=== PATIENT | female | born 1985 | race Caucasian/White ===

== ENCOUNTER → 2016-07-19 | Outpatient (CLI) | payer OTHER ==
[~2016-07-19] MED LIST: ALBUAER2 INH; BCPILLS PO; CLC150 PO; CRANPOW; FLVHFA110 INH; MRLP17 PO; MULT-506 PO; NITR1CAP33 PO; STLS
--- NOTE | 2016-07-19 09:17 | DIAGNOSTIC IMAGING REPORT ---
ULTRASOUND KIDNEYS AND BLADDER CLINICAL HISTORY: Neurogenic bladder. COMPARISON STUDY: Renal ultrasound dated 01/01/2016. TECHNIQUE: Real-time, grayscale, and color flow sonography of the kidneys and bladder is performed. Images are reviewed in the transverse and longitudinal planes. FINDINGS: Kidneys: The kidneys are normal in size and echotexture. The right kidney measures 9.4 x 3.9 x 4.7 cm and the left kidney measures 9.1 x 5.2 x 4.2 cm. Fullness of the renal collecting system bilaterally and an extrarenal pelvis on the right are similar to previous. There is no hydronephrosis. A 7 mm calculus is seen in the right lower pole. There is no sonographic evidence of contour deforming renal mass lesion. No perinephric fluid is identified. Bladder: The bladder is distended, and the bladder wall appears thickened and trabeculated. Ureteral jets were not seen. IMPRESSION: 1. The bladder is distended, and the wall appears thickened and trabeculated. This is consistent with the reported history of a neurogenic bladder and is similar appearance to previous. 2. The kidneys are normal in size and without hydronephrosis. 3. Nonobstructing right renal calculus. Electronically signed by: Melchor Dai M.D. 07/19/2016 9:15 AM Dictated Date/Time: 07/19/2016 9:12 AM
== END | disposition home or self-care (01) ==
LOC: C.ULTR 08:40
PROVIDERS: ATTEND Nurse Practitioner
DX: N31.9 Neuromuscular dysfunction of bladder, unspecified (principal); K59.2 Neurogenic bowel, not elsewhere classified; N20.0 Calculus of kidney

== ENCOUNTER → 2016-08-20 | Outpatient (CLI) | payer OTHER ==
[2016-08-20 13:59] LABS: ESTIMATED AVERAGE GLUCOSE 97 mg/dl; HA1C FLAG Normal (Normal)
[2016-08-20 15:00] LABS: CHOLESTEROL/HDL RATIO 3.7; THYROID STIMULATING HORMONE 1.42 uIu/ml (0.300-4.500)
[2016-08-22 13:43] LABS: MICROSOMAL AB <1 IU/ML (<9)
== END | disposition home or self-care (01) ==
LOC: C.LAB 12:06
PROVIDERS: ATTEND Family Medicine
DX: E03.9 Hypothyroidism, unspecified (principal); Z13.1 Encounter for screening for diabetes mellitus; Z13.220 Encounter for screening for lipoid disorders

== ENCOUNTER → 2016-10-01 | Outpatient (CLI) | payer OTHER | END | disposition home or self-care (01) | LOC: C.LAB 12:21 | PROVIDERS: ATTEND Physician Assistant | DX: E03.9 Hypothyroidism, unspecified (principal) ==

== ENCOUNTER → 2016-11-01 | Outpatient (CLI) | payer OTHER ==
--- NOTE | 2016-11-01 11:36 | DIAGNOSTIC IMAGING REPORT ---
ABDOMEN AND PELVIS CT WITHOUT CONTRAST CT DOSE: 231.08 mGy.cm HISTORY: Right flank pain. NEUROGENIC BLADDER CA TECHNIQUE: Multiaxial CT images of the abdomen and pelvis were performed without contrast. COMPARISON STUDY: Renal ultrasound 07/19/2016. Abdominal series 03/12/2006. FINDINGS: Linear densities at the lung bases consistent with subsegmental atelectasis. No pneumoperitoneum. No pneumatosis. 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 Deformity of the distal sacrum/coccyx is likely congenital. There is also congenital deformity within the iliac bones. Multiple segmental anomalies and fusion of the lumbar spine. There is an area of discontinuity within the mid lumbar spine which may represent an old fracture or pseudoarthrosis within the with surrounding soft tissue thickening. This is likely chronic. 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 There are 2 peritoneal catheter/shunts which terminate in the Morgagni hernia. These are looped together, unchanged. The unenhanced liver, gallbladder, spleen, adrenal glands, and pancreas are unremarkable. No retroperitoneal lymphadenopathy. Normal left kidney. A 4 mm stone within the right kidney. No ureteral stones. No hydronephrosis. Bladder is mildly distended and mildly thickened. The uterus and bilateral adnexa are unremarkable. Suboptimal evaluation for bowel pathology due to the lack of intravenous and oral contrast. However, there is no definite bowel wall thickening or obstruction. Questionable thickening of the colon is likely due to underdistention. Tiny fat-containing umbilical hernia. Anastomotic suture material within the right side the abdomen. IMPRESSION: 1. Right-sided nephrolithiasis. No hydronephrosis or ureteral stones. 2. No definite bowel wall thickening or obstruction. 3. Mildly distended and mildly thickened bladder. 4. Large anterior Morgagni hernia. 5. There are 2 adjacent peroneal shunt catheters terminating in the Morgagni hernia. The shunt catheters are looped together. This remains unchanged. 6. 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 This includes a area of discontinuity within the mid lumbar spine which may be due to an old nonunited fracture or pseudoarthrosis. There is mild soft tissue thickening around this nonunited section which is likely chronic. Electronically signed by: Kameron Rodriguez M.D. 11/01/2016 11:35 AM Dictated Date/Time: 11/01/2016 11:20 AM
== END | disposition home or self-care (01) ==
LOC: C.CTS 10:53
PROVIDERS: ATTEND Nurse Practitioner
DX: N31.9 Neuromuscular dysfunction of bladder, unspecified (principal); N20.0 Calculus of kidney; K46.9 Unspecified abdominal hernia without obstruction or gangrene

== ENCOUNTER → 2017-09-30 | Outpatient (CLI) | payer OTHER ==
--- NOTE | 2017-09-30 11:50 | DIAGNOSTIC IMAGING REPORT ---
RENAL ULTRASOUND CLINICAL HISTORY: Frequent urinary tract infections. COMPARISON STUDY: Renal ultrasound July 19, [address] of the abdomen and pelvis November 01, 2016. TECHNIQUE: Sonography of the kidneys and the urinary bladder was performed. FINDINGS: The right kidney measures 9.8 cm in maximal dimension and the left measures 10 cm. Mild right hydronephrosis resolved following catheterization. Mild left hydronephrosis persisted following catheterization. A 4 mm [place] within the lower pole the right kidney is noted. Renal echogenicity, size and cortical thickness are normal. Minimal postvoid residual was noted within the bladder following catheterization. IMPRESSION: 1. Normal renal echogenicity, size and cortical thickness. 2. Mild left hydronephrosis which persisted following catheterization. 3. Mild right hydronephrosis which resolved following catheterization. 4. 4 mm right renal calculus. Electronically signed by: Julio Sainz M.D. 09/30/2017 11:49 AM Dictated Date/Time: 09/30/2017 11:45 AM
== END | disposition home or self-care (01) ==
LOC: C.ULTR 10:25
PROVIDERS: ATTEND Nurse Practitioner
DX: N31.9 Neuromuscular dysfunction of bladder, unspecified (principal); K59.2 Neurogenic bowel, not elsewhere classified

== ENCOUNTER → 2017-09-30 | Outpatient (CLI) | payer OTHER ==
[2017-09-30 10:14] LABS: BASO % 0.1 %; BASO ABS # 0.01 K/uL (0-0.2); EOS % 1.1 %; EOS ABS # 0.11 K/uL (0-0.5); HEMOGLOBIN 16.3 g/dL (12.0-16.0); IG# 0.03 K/uL (0.00-0.02); LYMPH % 29.1 %; MEAN CELL VOLUME 90.2 fL (80-100); MEAN CORPUSCULAR HGB CONC 33.3 g/dl (32-36); MEAN PLATELET VOLUME 10.9 fL (7.4-10.4); MONO % 3.1 %; MONO ABS # 0.31 K/uL (0.11-0.59); NEUT % 66.3 %; NEUT ABS # 6.59 K/uL (1.4-6.5); PLATELET COUNT 284 K/uL (130-400); RED CELL DISTRIBUTION WIDTH CV 13.3 % (11.5-14.5); RED CELL DISTRIBUTION WIDTH SD 43.3 fL (36.4-46.3); WHITE BLOOD COUNT 9.95 K/uL (4.8-10.8)
[2017-09-30 10:42] LABS: ALBUMIN 4.2 gm/dl (3.4-5.0); ALT/SGPT 43 U/L (12-78); AST/SGOT 20 U/L (15-37); BLOOD UREA NITROGEN 8 mg/dl (7-18); CALCIUM 8.8 mg/dl (8.5-10.1); CARBON DIOXIDE 27 mmol/L (21-32); CHOLESTEROL 131 mg/dl (0-200); CREATININE 0.33 mg/dl (0.60-1.20); GLUCOSE 71 mg/dl (70-99); POTASSIUM 3.8 mmol/L (3.5-5.1); SODIUM 140 mmol/L (136-145)
[2017-09-30 11:03] LABS: ALKALINE PHOSPHATASE 58 U/L (45-117); LDL CHOLESTEROL CALCULATED 69 mg/dl; TOTAL PROTEIN 7.9 gm/dl (6.4-8.2)
== END | disposition home or self-care (01) ==
LOC: C.LAB 09:13
PROVIDERS: ATTEND Physician Assistant
DX: I10 Essential (primary) hypertension (principal); E78.00 Pure hypercholesterolemia, unspecified

== ENCOUNTER 2020-10-02 13:20 | Inpatient (IN) ==
--- NOTE | 2020-10-02 14:31 | Electrocardiogram Report ---
Test Reason : Blood Pressure : / mmHG Vent. Rate : 111 BPM Atrial Rate : 111 BPM P-R Int : 096 ms QRS Dur : 064 ms QT Int : 324 ms P-R-T Axes : 037 039 039 degrees QTc Int : 440 ms Sinus tachycardia with short [place] Low voltage QRS Borderline ECG No previous ECGs available Confirmed by Kobe Miller ([id number]) on 10/02/2020 2:31:06 PM Referred By: Confirmed By:Kobe Miller
[2020-10-02 14:34] LABS: Basophils # (auto) 0.03 K/uL (0-0.2); Basophils % (auto) 0.3 %; Eosinophils # (auto) 0.24 K/uL (0-0.5); Eosinophils % (auto) 2.1 %; Hematocrit (blood only) 47.9 % (37-47); Hemoglobin 16.1 g/dL (12.0-16.0); Immature Granulocytes # (auto) 0.05 K/uL (0.00-0.02); Immature Granulocytes % (auto) 0.4 %; Lymphocytes # (auto) 3.55 K/uL (1.2-3.4); Mean Corpuscular Hemoglobin 30.4 pg (25-34); Mean Corpuscular Hgb Conc 33.6 g/dL (32-36); Mean Corpuscular Volume 90.4 fL (80-100); Mean Platelet Volume 10.7 fL (7.4-10.4); Monocytes # (auto) 0.72 K/uL (0.11-0.59); Monocytes % (auto) 6.3 %; Neutrophils # (auto) 6.87 K/uL (1.4-6.5); Neutrophils % (auto) 59.9 %; Platelet Count 403 K/uL (130-400); RDW Coefficient of Variation 13.8 % (11.5-14.5); RDW Standard Deviation 45.5 fL (36.4-46.3); White Blood Count 11.46 K/uL (4.8-10.8)
--- NOTE | 2020-10-02 14:40 | Emergency Department Note ---
Impression & Plan Pneumonia, Cough, Dehydration ED Provider Note NAME: JERROD PURVIS AGE: 35 SEX: F : 1985 ARRIVES VIA: Walk-In INFORMANT: Patient, ED PROVIDER(S): Alvino Koehler MD Chief Complaint: Cough HPI: Patient does present with concern for cough. This is been ongoing for approximately 7 days. The patient's mother who is at bedside states that she had a cough about 3 weeks ago and this improved actually which is Maribel Russell. The patient's cough she describes as wet but is unable to bring it up. 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 Patient has been using nebulizers at home but without much relief in symptoms. The patient denies any nausea or vomiting. Patient denies any true fevers or chills. Patient is wheelchair-bound. No reported rashes or abdominal pain. No headache sore throat or congestion. ROS: See HPI for pertinent positives and negatives. A total of 10 systems were reviewed and otherwise negative. Past medical history: See below Surgical history: See below Social history: See below Physical Exam: GENERAL: Wearing glasses and a mask. EYE EXAM: Normal conjunctiva. PERRL, no anisocoria and EOM's grossly intact w/o pain. NECK: Supple, no nuchal rigidity, no adenopathy, non-tender. No signs of meningismus. LUNGS: Coarse sounds throughout worsening left chest. Normal chest wall mechanics. HEART: Tachycardic and regular, no MRG. ABDOMEN: Abdomen soft, non-tender, normo-active bowel sounds, no masses, no rebound or guarding. BACK: No CVA TTP. SKIN: No rashes and no bruising. UPPER EXTREMITIES: Upper extremities are grossly normal. LOWER EXTREMITIES: Grossly normal, no edema. NEURO EXAM: A&O x3, cranial nerves II-XII grossly intact, normal speech, paraplegia bilateral lower extremities. Differential diagnoses: Sepsis, UTI, pneumonia, metabolic, electrolyte abnormalities, cardiac sources, intracerebral event, toxicologic, neurologic, as well as other pathologies. Course: Patient was seen and evaluated the bedside. Full history physical exam was performed. EKG interpreted by me Indication: Tachycardia Sinus tachycardia, rate of 111, short [place], normal QRS, normal axis, no obvious ST changes. Prior EKGs for comparison. Imaging Studies: See below Cardiac monitoring: An order was placed for continuous cardiac monitoring. The monitor shows a rate of 114 with sinus tachycardia rhythm. MDM: Patient did present with concern for cough. The patient was tachycardic. Blood cultures IV fluids empiric antibiotics were ordered. Patient does have a white count of 11 with associated pneumonia seen on chest x- ray. Given the patient's tachycardia pneumonia symptoms and paraplegia believe the patient would benefit from inpatient treatment. Zosyn had initially been ordered. I did speak the on-call hospitalist Dr. Bolanos. Azithromycin was added. Patient was admitted to the medicine service. Lactate was 1.2. Troponin not detectable. Covid flu and RSV negative. Past Med/Surg History Medical History Asthma Paraplegia Social History Smoking Status: Never smoker Feels Safe at Home: Yes Allergies Allergies Allergy/AdvReac Type Severity Reaction Status Date / Time latex Allergy Unknown . Verified 10/02/20 16:22 morphine Allergy Unknown . Verified 10/02/20 16:22 vancomycin AdvReac Mild JOVAN Verified 10/02/20 16:22 SYNDROME Home Meds Home Medications Medication Instructions Recorded Confirmed albuterol sulfate 2.5 mg INHALATION Q4H PRN 10/02/20 10/02/20 albuterol sulfate [Ventolin HFA] 2 puff INHALATION QID PRN 10/02/20 10/02/20 ascorbic acid (vitamin C) 0 mg PO DAILY 10/02/20 10/02/20 cranberry 500 mg PO DAILY 10/02/20 10/02/20 fluticasone propionate 1 spray INTRANASAL DAILY 10/02/20 10/02/20 fluticasone propionate [Flovent 1 inh INHALATION BID 10/02/20 10/02/20 HFA] menthol-zinc oxide [Calmoseptine] 1 applic TOPICAL BID 10/02/20 10/02/20 ivqtojpsikbh-zrdb-jvynt acid 1 tab PO DAILY 10/02/20 10/02/20 [Centrum] nitrofurantoin macrocrystal 50 mg PO DAILY 10/02/20 10/02/20 norethindrone ac-eth estradiol 1 tab PO DAILY 10/02/20 10/02/20 [Junel 1.5 ()] polyethylene glycol 3350 17 g PO BID 10/02/20 10/02/20 Results & Data (ED) Vital Signs Vital Signs - 24 hr 10/02/20 13:34 10/02/20 14:54 10/02/20 14:59 Temperature 36.8 C Temperature Source Skin Pulse Rate 114 H 113 H 116 H Pulse Rate from SpO2 Sensor 113 H 119 H Pulse Rhythm Respiratory Rate 16 22 20 Respiratory Effort / Characteristics Non-Labored Spontaneous Respiratory Depth Normal Respiratory Pattern Regular Blood Pressure 146/98 H 153/111 H Blood Pressure Mean 114 125 Pulse Oximetry 98 97 96 Oxygen Delivery Method Room Air Sepsis Recent Fever Within 48 Hours No Sepsis New/Unexplained Change in Mental Status N/A Sepsis Action Taken by Nursing No Action Required 10/02/20 15:00 10/02/20 15:10 10/02/20 15:20 Temperature Temperature Source Pulse Rate 126 H 109 H 121 H Pulse Rate from SpO2 Sensor 121 H 112 H 120 H Pulse Rhythm Respiratory Rate 23 28 H 31 H Respiratory Effort / Characteristics Respiratory Depth Respiratory Pattern Blood Pressure Blood Pressure Mean Pulse Oximetry 97 97 96 Oxygen Delivery Method Sepsis Recent Fever Within 48 Hours Sepsis New/Unexplained Change in Mental Status Sepsis Action Taken by Nursing 10/02/20 15:30 10/02/20 15:33 10/02/20 15:40 Temperature Temperature Source Pulse Rate 120 H 115 H Pulse Rate from SpO2 Sensor Pulse Rhythm Regular Respiratory Rate 26 H 20 Respiratory Effort / Characteristics Respiratory Depth Normal Respiratory Pattern Blood Pressure Blood Pressure Mean Pulse Oximetry Oxygen Delivery Method Room Air Sepsis Recent Fever Within 48 Hours Sepsis New/Unexplained Change in Mental Status Sepsis Action Taken by Nursing 10/02/20 15:45 10/02/20 15:50 10/02/20 16:00 Temperature Temperature Source Pulse Rate 106 H 99 H 117 H Pulse Rate from SpO2 Sensor 108 H 100 H 117 H Pulse Rhythm Respiratory Rate 25 H 24 28 H Respiratory Effort / Characteristics Respiratory Depth Respiratory Pattern Blood Pressure 155/113 H 185/118 H Blood Pressure Mean 127 140 Pulse Oximetry 95 96 97 Oxygen Delivery Method Sepsis Recent Fever Within 48 Hours Sepsis New/Unexplained Change in Mental Status Sepsis Action Taken by Nursing 10/02/20 16:01 10/02/20 16:10 10/02/20 16:15 Temperature Temperature Source Pulse Rate 113 H 135 H 112 H Pulse Rate from SpO2 Sensor 115 H 133 H 113 H Pulse Rhythm Respiratory Rate 29 H 29 H 27 H Respiratory Effort / Characteristics Respiratory Depth Respiratory Pattern Blood Pressure 151/107 H Blood Pressure Mean 121 Pulse Oximetry 98 96 98 Oxygen Delivery Method Sepsis Recent Fever Within 48 Hours Sepsis New/Unexplained Change in Mental Status Sepsis Action Taken by Nursing 10/02/20 16:20 10/02/20 16:30 10/02/20 16:31 Temperature Temperature Source Pulse Rate 123 H 126 H 119 H Pulse Rate from SpO2 Sensor 121 H 126 H 118 H Pulse Rhythm Respiratory Rate 21 29 H 30 H Respiratory Effort / Characteristics Respiratory Depth Respiratory Pattern Blood Pressure 155/120 H Blood Pressure Mean 131 Pulse Oximetry 96 98 97 Oxygen Delivery Method Sepsis Recent Fever Within 48 Hours Sepsis New/Unexplained Change in Mental Status Sepsis Action Taken by Nursing 10/02/20 16:40 10/02/20 16:45 10/02/20 16:50 Temperature Temperature Source Pulse Rate 123 H 117 H 112 H Pulse Rate from SpO2 Sensor 123 H 117 H 115 H Pulse Rhythm Respiratory Rate 33 H 33 H 27 H Respiratory Effort / Characteristics Respiratory Depth Respiratory Pattern Blood Pressure 170/115 H Blood Pressure Mean 133 Pulse Oximetry 98 97 96 Oxygen Delivery Method Sepsis Recent Fever Within 48 Hours Sepsis New/Unexplained Change in Mental Status Sepsis Action Taken by Skilled Nursing Medications Current Medication List: was personally reviewed by me Laboratory Data Attestation: I reviewed the patient's lab results. Result diagrams: 10/02/20 14:20 10/02/20 14:20 Lab Results 10/02/20 10/02/20 10/02/20 Range/Units 14:20 14:20 14:20 WBC 11.46 H (4.8-10.8) K/uL RBC 5.30 (4.2-5.4) M/uL Hgb 16.1 H (12.0-16.0) g/dL Hct 47.9 H (37-47) % MCV 90.4 (80-100) fL MCH 30.4 (25-34) pg MCHC 33.6 (32-36) g/dL RDW Std Deviation 45.5 (36.4-46.3) fL RDW Coeff of Michelle 13.8 (11.5-14.5) % Plt Count 403 H (130-400) K/uL MPV 10.7 H (7.4-10.4) fL Immature Gran % (Auto) 0.4 % Neut % (Auto) 59.9 % Lymph % (Auto) 31.0 % [place] % (Auto) 6.3 % Eos % (Auto) 2.1 % Baso % (Auto) 0.3 % Neut # (Auto) 6.87 H (1.4-6.5) K/uL Lymph # (Auto) 3.55 H (1.2-3.4) K/uL [place] # (Auto) 0.72 H (0.11-0.59) K/uL Eos # (Auto) 0.24 (0-0.5) K/uL Baso # (Auto) 0.03 (0-0.2) K/uL Immature Gran # (Auto) 0.05 H (0.00-0.02) K/uL PT (9.0-12.0) Seconds INR (0.9-1.1) APTT (21.0-31.0) Seconds PTT Ratio Sodium 141 (136-145) mmol/L Potassium 4.2 (3.5-5.1) mmol/L Chloride 109 H (98-107) mmol/L Carbon Dioxide 31 (21-32) mmol/L Anion Gap 1.0 L (3-11) BUN 6 L (7-18) mg/dl Creatinine 0.36 L (0.6-1.2) mg/dl Est Cr Clr Drug Dosing 144.6 ml/min Est GFR ( Amer) > 150.0 Est GFR (Non-Af Amer) 139.7 BUN/Creatinine Ratio 17.3 (10-20) Glucose 119 H (70-99) mg/dl Lactate (0.4-2.0) mmol/L Calcium 8.9 (8.5-10.1) mg/dl Magnesium 2.3 (1.8-2.4) mg/dl Total Bilirubin 0.2 (0.2-1) mg/dl AST 30 (15-37) U/L ALT 56 (12-78) U/L Alkaline Phosphatase 55 (45-117) U/L Troponin I < 0.015 (0-0.045) ng/ml Total Protein 8.2 (6.4-8.2) gm/dl Albumin 3.9 (3.4-5.0) gm/dl Globulin 4.3 H (2.5-4.0) gm/dl Albumin/Globulin Ratio 0.9 (0.9-2) Procalcitonin (0-0.5) ng/ml Specimen Hemolysis COVID-19 Eval Order SARS-CoV-2 (PCR) (Negative) Influenza Type A (PCR) (Neg) Influenza Type B (PCR) (Neg) RSV (RT-PCR) (Neg) 10/02/20 10/02/20 10/02/20 Range/Units 15:25 15:25 15:25 WBC (4.8-10.8) K/uL RBC (4.2-5.4) M/uL Hgb (12.0-16.0) g/dL Hct (37-47) % MCV (80-100) fL MCH (25-34) pg MCHC (32-36) g/dL RDW Std Deviation (36.4-46.3) fL RDW Coeff of Michelle (11.5-14.5) % Plt Count (130-400) K/uL MPV (7.4-10.4) fL Immature Gran % (Auto) % Neut % (Auto) % Lymph % (Auto) % [place] % (Auto) % Eos % (Auto) % Baso % (Auto) % Neut # (Auto) (1.4-6.5) K/uL Lymph # (Auto) (1.2-3.4) K/uL [place] # (Auto) (0.11-0.59) K/uL Eos # (Auto) (0-0.5) K/uL Baso # (Auto) (0-0.2) K/uL Immature Gran # (Auto) (0.00-0.02) K/uL PT (9.0-12.0) Seconds INR (0.9-1.1) APTT (21.0-31.0) Seconds PTT Ratio Sodium (136-145) mmol/L Potassium (3.5-5.1) mmol/L Chloride (98-107) mmol/L Carbon Dioxide (21-32) mmol/L Anion Gap (3-11) BUN (7-18) mg/dl Creatinine (0.6-1.2) mg/dl Est Cr Clr Drug Dosing ml/min Est GFR ( Amer) Est GFR (Non-Af Amer) BUN/Creatinine Ratio (10-20) Glucose (70-99) mg/dl Lactate 1.2 (0.4-2.0) mmol/L Calcium (8.5-10.1) mg/dl Magnesium (1.8-2.4) mg/dl Total Bilirubin (0.2-1) mg/dl AST (15-37) U/L ALT (12-78) U/L Alkaline Phosphatase (45-117) U/L Troponin I (0-0.045) ng/ml Total Protein (6.4-8.2) gm/dl Albumin (3.4-5.0) gm/dl Globulin (2.5-4.0) gm/dl Albumin/Globulin Ratio (0.9-2) Procalcitonin (0-0.5) ng/ml Specimen Hemolysis COVID-19 Eval Order CovFluRsv at [facility] SARS-CoV-2 (PCR) NEGATIVE (Negative) Influenza Type A (PCR) Negative (Neg) Influenza Type B (PCR) Negative (Neg) RSV (RT-PCR) Negative (Neg) 10/02/20 10/02/20 Range/Units 16:04 16:04 WBC (4.8-10.8) K/uL RBC (4.2-5.4) M/uL Hgb (12.0-16.0) g/dL Hct (37-47) % MCV (80-100) fL MCH (25-34) pg MCHC (32-36) g/dL RDW Std Deviation (36.4-46.3) fL RDW Coeff of Michelle (11.5-14.5) % Plt Count (130-400) K/uL MPV (7.4-10.4) fL Immature Gran % (Auto) % Neut % (Auto) % Lymph % (Auto) % [place] % (Auto) % Eos % (Auto) % Baso % (Auto) % Neut # (Auto) (1.4-6.5) K/uL Lymph # (Auto) (1.2-3.4) K/uL [place] # (Auto) (0.11-0.59) K/uL Eos # (Auto) (0-0.5) K/uL Baso # (Auto) (0-0.2) K/uL Immature Gran # (Auto) (0.00-0.02) K/uL PT 10.1 (9.0-12.0) Seconds INR 1.0 (0.9-1.1) APTT 28.6 (21.0-31.0) Seconds PTT Ratio 1.1 Sodium (136-145) mmol/L Potassium (3.5-5.1) mmol/L Chloride (98-107) mmol/L Carbon Dioxide (21-32) mmol/L Anion Gap (3-11) BUN (7-18) mg/dl Creatinine (0.6-1.2) mg/dl Est Cr Clr Drug Dosing ml/min Est GFR ( Amer) Est GFR (Non-Af Amer) BUN/Creatinine Ratio (10-20) Glucose (70-99) mg/dl Lactate (0.4-2.0) mmol/L Calcium (8.5-10.1) mg/dl Magnesium (1.8-2.4) mg/dl Total Bilirubin (0.2-1) mg/dl AST (15-37) U/L ALT (12-78) U/L Alkaline Phosphatase (45-117) U/L Troponin I (0-0.045) ng/ml Total Protein (6.4-8.2) gm/dl Albumin (3.4-5.0) gm/dl Globulin (2.5-4.0) gm/dl Albumin/Globulin Ratio (0.9-2) Procalcitonin < 0.05 (0-0.5) ng/ml Specimen Hemolysis COVID-19 Eval Order SARS-CoV-2 (PCR) (Negative) Influenza Type A (PCR) (Neg) Influenza Type B (PCR) (Neg) RSV (RT-PCR) (Neg) Administered Medications Discontinued Medications Azithromycin (Azithromycin 250 Mg Tab) 500 mg PO NOW ONE Stop: 10/02/20 15:54 Last Admin: 10/02/20 16:17 Dose: 500 mg Documented by: [id number] Sodium Chloride (Nss 1000ml) 1,000 mls @ 999 mls/hr IV .Q1H1M СВЕТЛАНА Stop: 10/02/20 16:01 Last Infusion: 10/02/20 16:42 Dose: 999 mls/hr Documented by: [id number] Admin: 10/02/20 15:23 Dose: 999 mls/hr Documented by: [id number] Sodium Chloride (Nss 1000ml) 500 mls @ 999 mls/hr IV .Q31M СВЕТЛАНА Stop: 10/02/20 16:31 Last Infusion: 10/02/20 16:42 Dose: 999 mls/hr Documented by: [id number] Admin: 10/02/20 15:23 Dose: 999 mls/hr Documented by: [id number] Piperacillin Sod/Tazobactam Sod (Zosyn) 4.5 gm in 120 mls @ 240 mls/hr IV NOW ONE Stop: 10/02/20 15:29 Last Infusion: 10/02/20 16:42 Dose: 240 mls/hr Documented by: [id number] Admin: 10/02/20 15:42 Dose: 240 mls/hr Documented by: [id number] Imaging Data Radiologist's Impression: Chest X-Ray 10/02/20 13:41 XR chest 1V portable CLINICAL HISTORY: cough COMPARISON STUDY: 03/12/2006 FINDINGS: There are tubular calcifications projected over the chest consistent with ventricular shunt catheters. There is a catheter coiled within the left upper quadrant. There are persistent left mid and lower lung zone airspace opacities, slightly progressive. Mildly increased markings are also present the right medial lung base.[There is blunting of the left lateral costophrenic angle. A small effusion cannot be excluded IMPRESSION: 1. Evidence of a ventriculoperitoneal shunt catheter which appears: Within the left upper quadrant 2. Slight progression in the left mid to lower lung zone opacities, possibly representing an acute inflammatory process superimposed on chronic lung disease. 3. Blunting of the left lateral costophrenic angle. Possible small effusion. ACT 112: Negative or not required by law. Electronically signed by: Mika Fisher M.D. 10/02/2020 3:16 PM Discharge Plan Visit Data Chief Complaint: Cough Stated Complaint: BAD COUGH ED Provider: Alvino Koehler Discharge Problem: Pneumonia, Cough, Dehydration Forms Stand Alone Forms: [facility] Prescriptions Prescriptions: No Action nitrofurantoin macrocrystal 50 mg capsule 50 mg PO DAILY RF: 0 albuterol sulfate 2.5 mg /3 mL (0.083 %) Solution For Nebulization 2.5 mg INHALATION Q4H PRN (Reason: Shortness Of Breath) RF: 0 norethindrone ac-eth estradiol [ (21)] 1.5-30 mg-mcg tablet 1 tab PO DAILY RF: 0 ascorbic acid (vitamin C) 500 mg Tablet 0 mg PO DAILY RF: 0 polyethylene glycol 3350 17 gram/dose powder 17 g PO BID RF: 0 albuterol sulfate [Ventolin HFA] 90 mcg/actuation Hfa Aerosol Inhaler 2 puff INHALATION QID PRN (Reason: Shortness Of Breath) RF: 0 fluticasone propionate 50 mcg/actuation spray,suspension 1 spray INTRANASAL DAILY RF: 0 cranberry 500 mg Capsule 500 mg PO DAILY RF: 0 Flovent HFA 110 mcg/actuation HFA aerosol inhaler 1 inh INHALATION BID RF: 0 Centrum 18-400 mg-mcg Tablet 1 tab PO DAILY RF: 0 Calmoseptine 0.44-20.6 % Ointment 1 applic TOPICAL BID RF: 0 Discharge Problem: Pneumonia Qualifiers: Pneumonia type: due to unspecified organism Laterality: left Lung location: lower lobe of lung Qualified Code(s): J18.9 - Pneumonia, unspecified organism
[2020-10-02 14:44] LABS: Aspartate Aminotransferase 30 U/L (15-37); BUN Creatinine Ratio 17.3 (10-20); Blood Urea Nitrogen 6 mg/dl (7-18); Calcium 8.9 mg/dl (8.5-10.1); Carbon Dioxide 31 mmol/L (21-32); Chloride 109 mmol/L (98-107); Creatinine Clr Calc Pharmacy 144.6 ml/min; Est GFR (African American) > 150.0; Est GFR (Non-African American) 139.7; Glucose 119 mg/dl (70-99); Potassium 4.2 mmol/L (3.5-5.1); Sodium 141 mmol/L (136-145)
[2020-10-02 14:45] LABS: Alanine Aminotransferase 56 U/L (12-78); Albumin Level 3.9 gm/dl (3.4-5.0)
[2020-10-02 14:49] LABS: Albumin Globulin Ratio 0.9 (0.9-2); Alkaline Phosphatase 55 U/L (45-117); Bilirubin,Total 0.2 mg/dl (0.2-1); Globulin 4.3 gm/dl (2.5-4.0); Total Protein 8.2 gm/dl (6.4-8.2)
[2020-10-02] MEDS ORDERED: PIPERACILL/TAZOBAC CONSULT ACTIVE PRN (15:00)
[2020-10-02] MEDS ORDERED: PIPERACILLIN/TAZOBACTAM 4.5 GM/120 ML BAG IV ONE (15:00)
--- NOTE | 2020-10-02 15:18 | XRay Report ---
XR chest 1V portable CLINICAL HISTORY: cough COMPARISON STUDY: 03/12/2006 FINDINGS: There are tubular calcifications projected over the chest consistent with ventricular shunt catheters. There is a catheter coiled within the left upper quadrant. There are persistent left mid and lower lung zone airspace opacities, slightly progressive. Mildly increased markings are also pres ent the right medial lung base.[There is blunting of the left lateral costophrenic angle. A small eff usion cannot be excluded IMPRESSION: 1. Evidence of a ventriculoperitoneal shunt catheter which appears: Within the left upper quadrant 2. Slight progression in the left mid to lower lung zone opacities, possibly representing an acute in flammatory process superimposed on chronic lung disease. 3. Blunting of the left lateral costophrenic angle. Possible small effusion. ACT 112: Negative or not required by law. Electronically signed by: Mika Fisher M.D. 10/02/2020 3:16 PM
[2020-10-02] MEDS: SODIUM CHLORIDE 0.9% 1000ML 1,000 ML IV SCH ×2 (15:23→21:09)
[2020-10-02] MEDS ORDERED: AZITHROMYCIN 250 MG TAB PO ONE (15:53)
[2020-10-02] MEDS ORDERED: SODIUM CHLORIDE 0.9% 1000ML 500 ML IV SCH (16:01)
[2020-10-02 16:17] LABS: Magnesium 2.3 mg/dl (1.8-2.4); Troponin I < 0.015 ng/ml (0-0.045)
[2020-10-02 16:20] LABS: Influenza A virus by PCR Negative (Neg); Influenza B virus by PCR Negative (Neg); RSV by PCR Negative (Neg); SARS CoV2 RNA(COVID-19) InHosp NEGATIVE (Negative)
[2020-10-02 16:33] LABS: Partial Thromboplastin Ratio 1.1; Partial Thromboplastin Time 28.6 Seconds (21.0-31.0); Prothrombin Time 10.1 Seconds (9.0-12.0)
--- NOTE | 2020-10-02 17:47 | History & Physical Report ---
Date of Service October 02, 2020 Assessment & Plan (1) Pneumonia: Presumed bacterial unable to view sputum - influenza, Covid, and RSV negative - PCT <0.05 - Blood cultures pending - WBC mildly elevated at 11 with NLR 2:1 - Rocephin 1 GM daily, Azithro for atypical, MRSA swab pending (2) SIRS (systemic inflammatory response syndrome): SIRS- 2, Qsofa-1 -Lacate normal - no other evidence of organ dysfunction - Continue with supportive care - hemoconcentrated- received 2 liters 0.9% saline in ER- LR at 65 ml/hour (40ml/kg) through PM (3) Cough: - Productive in sound - Robitussin DM for suppressant - RT to perform Vest percussion therapy QID if patient can tolerate - no need for naso/oral tracheal suctioning at this time (4) Paraplegia: Chronic spina bifida- no acute needs - support with turning q2 hours - low air loss matress - keep skin dry (5) Asthma: Continue nebulizers and inhalers - albuterol - Flovent (6) Chronic constipation: Patient had MACE procedure done - daily gets 1200 ml of water with miralax daily in the morning - uses 12 Belarusian catheter and gravity tube feeding bag - grandmother is primary rn complex care and can perform or assist during hospitalization (7) Elevated blood-pressure reading without diagnosis of hypertension: Elevated Systolic and Diastolic on multiple readings - would have to trend through stay hold off on treating for now - grandmother states she gets anxious in hospital setting (8) DVT prophylaxis: None- not at any higher risk than what she is at home History of Present Illness Chief Complaint: cough Primary Care Provider: Gaston Carey 35 YOF with past medical history of spina bifida, lower extremity paralysis, MACE (Meza antegrade continence enema) procedure, intraventricular-peritoneal shunt, neurogenic bladder requiring self cath, asthma, multiple spinal procedures, follows with [facility] for nephrolithiasis has appointment next month. Patient comes in today for not feeling well for a week. She has had this productive frequent cough for 1 week, which her grandmother believes she gave it to her (she is her primary caregiver). Patient and grandmother can recall 1-2 nights last week where she also had a fever requiring linen and clothes changed. She reports that for the last 48 hours she has been coughing excessively with unable to bring anything up. She has tried Mucinex and Tessalon pearls at home with no relief. She has a nebulizer at home as well that she uses, but makes her cough more. Her viral panel and COVID test are negative. Patient will be admitted for support in clearing her secretions, antibiotic therapy and following her vitals. Allergies Allergy/AdvReac Type Severity Reaction Status Date / Time latex Allergy Unknown . Verified 10/02/20 16:22 morphine Allergy Unknown . Verified 10/02/20 16:22 vancomycin AdvReac Mild JOVAN Verified 10/02/20 16:22 SYNDROME Home Medications Medication Instructions Recorded Confirmed Type albuterol sulfate 2.5 mg INHALATION Q4H PRN 10/02/20 10/02/20 History albuterol sulfate [Ventolin HFA] 2 puff INHALATION QID PRN 10/02/20 10/02/20 History ascorbic acid (vitamin C) 0 mg PO DAILY 10/02/20 10/02/20 History cranberry 500 mg PO DAILY 10/02/20 10/02/20 History fluticasone propionate 1 spray INTRANASAL DAILY 10/02/20 10/02/20 History fluticasone propionate [Flovent 1 inh INHALATION BID 10/02/20 10/02/20 History HFA] menthol-zinc oxide [Calmoseptine] 1 applic TOPICAL BID 10/02/20 10/02/20 History pkhzxjpgogyw-ctdg-vkahp acid 1 tab PO DAILY 10/02/20 10/02/20 History [Centrum] nitrofurantoin macrocrystal 50 mg PO DAILY 10/02/20 10/02/20 History norethindrone ac-eth estradiol 1 tab PO DAILY 10/02/20 10/02/20 History [Junel ()] polyethylene glycol 3350 17 g PO BID 10/02/20 10/02/20 History Past Med/Surg History Medical History Asthma Chronic constipation Nephrolithiasis Neurogenic bladder Paraplegia Spina bifida Surgical History (Updated 10/02/20 @ 22:58 by Breanna Bolanos MD) H/O Spinal surgery S/P PART MAKER shunt Family History Other Diabetes Heart disease Social History Smoking Status: Never smoker Hx Alcohol Use: No Hx Substance Use: No Preferred Language: Algerian Ticket Speculator Required: No Beliefs That Will Affect Care: None Current Living Situation: Family Current Living Situation Comment: Lives with grandmother Leonarda Other Information That Helps Us Care for You: No Feels Safe at Home: Yes Safety Concerns: Feels Safe At This Time Assistive Devices: Glasses and Wheelchair Assistive Devices Comment: personal wheelchair Review of Systems Review of Systems: REVIEW OF SYSTEMS: Constitutional: No recent fever, sweats or chills Eyes: No diplopia, no worsening or blurred vision ENT: normal hearing, no trouble swallowing Respiratory: (+) cough, sputum, No dyspnea at rest or on exertion Cardiovascular: No chest pain, tightness or palpitations Abdomen: No pain, nausea, vomiting, diarrhea or constipation Musculoskeletal: No joint pain, calf pain, swelling Neurologic: (+) parplegia, neurogenic bladder, No weakness, numbness/tingling, or balance problems Psychiatric: No anxiety or depression Skin: No rash or itch Physical Exam Physical Exam: PHYSICAL EXAM: General: awake, alert, no apparent distress Head: Normocephalic, atraumatic ENT: PERRL, EOMI, no pharyngeal exudate, mucous membranes moist Neuro: AAO x 3, speech clear and appropriate, strength intact upper bilaterally 5/5, sensation intact upper bilaterally. Chest: equal rise and fall of the chest, no accessory muscle use, no heaves or thrills, scattered rhonchi LT>RT, on room air, cough no secretions brought up, bronchovesicular wheeze Cardiac: Regular rate and rhythm, telemetry reviewed, tachycardia, skin warm dry, cap refill <3 seconds, peripheral pulses +2 no JVD, no murmur, no edema GI: NABS x 4 quadrants, soft, nontender to palpation, no rebound, guarding or tenderness, MACE access point in umbilicus : Self cath, no hematuria Extremities: Normal inspection, no peripheral edema or erythema, calfs nontender to palpation Psych: Normal mood and affect Skin: no rash or erythema Results & Data Results & Data ([facility]) Vital Signs (Past 12 Hours) Vital Signs Temp Pulse Resp BP Pulse Ox 10/02/20 16:50 112 H 27 H 96 10/02/20 16:45 117 H 33 H 170/115 H 97 10/02/20 16:40 123 H 33 H 98 10/02/20 16:31 119 H 30 H 97 10/02/20 16:30 126 H 29 H 155/120 H 98 10/02/20 16:20 123 H 21 96 10/02/20 16:15 112 H 27 H 151/107 H 98 10/02/20 16:10 135 H 29 H 96 10/02/20 16:01 113 H 29 H 98 10/02/20 16:00 117 H 28 H 185/118 H 97 10/02/20 15:50 99 H 24 96 10/02/20 15:45 106 H 25 H 155/113 H 95 10/02/20 15:40 115 H 20 10/02/20 15:30 120 H 26 H 10/02/20 15:20 121 H 31 H 96 10/02/20 15:10 109 H 28 H 97 10/02/20 15:00 126 H 23 97 10/02/20 14:59 116 H 20 96 10/02/20 14:54 113 H 22 153/111 H 97 10/02/20 13:34 36.8 C 114 H 16 146/98 H 98 Laboratory Results Abnormal lab results 10/02/20 10/02/20 Range/Units 14:20 14:20 WBC 11.46 H (4.8-10.8) K/uL Hgb 16.1 H (12.0-16.0) g/dL Hct 47.9 H (37-47) % Plt Count 403 H (130-400) K/uL MPV 10.7 H (7.4-10.4) fL Neut # (Auto) 6.87 H (1.4-6.5) K/uL Lymph # (Auto) 3.55 H (1.2-3.4) K/uL [place] # (Auto) 0.72 H (0.11-0.59) K/uL Immature Gran # (Auto) 0.05 H (0.00-0.02) K/uL Chloride 109 H (98-107) mmol/L Anion Gap 1.0 L (3-11) BUN 6 L (7-18) mg/dl Creatinine 0.36 L (0.6-1.2) mg/dl Glucose 119 H (70-99) mg/dl Globulin 4.3 H (2.5-4.0) gm/dl Diagnostic Findings XR chest 1V portable CLINICAL HISTORY: cough COMPARISON STUDY: 03/12/2006 FINDINGS: There are tubular calcifications projected over the chest consistent with ventricular shunt catheters. There is a catheter coiled within the left upper quadrant. There are persistent left mid and lower lung zone airspace opacities, slightly progressive. Mildly increased markings are also present the right medial lung base.[There is blunting of the left lateral costophrenic angle. A small effusion cannot be excluded IMPRESSION: 1. Evidence of a ventriculoperitoneal shunt catheter which appears: Within the left upper quadrant 2. Slight progression in the left mid to lower lung zone opacities, possibly representing an acute inflammatory process superimposed on chronic lung disease. 3. Blunting of the left lateral costophrenic angle. Possible small effusion. Medications Administered Home Medications albuterol sulfate 2.5 mg INHALATION Q4H PRN 10/02/20 [History Confirmed 10/02/20] albuterol sulfate [Ventolin HFA] 2 puff INHALATION QID PRN 10/02/20 [History Confirmed 10/02/20] ascorbic acid (vitamin C) 0 mg PO DAILY 10/02/20 [History Confirmed 10/02/20] cranberry 500 mg PO DAILY 10/02/20 [History Confirmed 10/02/20] fluticasone propionate 1 spray INTRANASAL DAILY 10/02/20 [History Confirmed 10/02/20] fluticasone propionate [Flovent HFA] 1 inh INHALATION BID 10/02/20 [History Confirmed 10/02/20] menthol-zinc oxide [Calmoseptine] 1 applic TOPICAL BID 10/02/20 [History Confirmed 10/02/20] ooqsefmklbuq-byic-ieoyv acid [Centrum] 1 tab PO DAILY 10/02/20 [History Confirmed 10/02/20] nitrofurantoin macrocrystal 50 mg PO DAILY 10/02/20 [History Confirmed 10/02/20] norethindrone ac-eth estradiol [Junel .10/29 ()] 1 tab PO DAILY 10/02/20 [History Confirmed 10/02/20] polyethylene glycol 3350 17 g PO BID 10/02/20 [History Confirmed 10/02/20] Active Medications Lactated Ringer's (Lr) 1,000 mls @ 65 mls/hr IV .[id number] [facility] Stop: 11/01/20 17:44 Discontinued Medications Azithromycin (Azithromycin 250 Mg Tab) 500 mg PO NOW ONE Stop: 10/02/20 15:54 Last Admin: 10/02/20 16:17 Dose: 500 mg Documented by: [id number] Sodium Chloride (Nss 1000ml) 1,000 mls @ 999 mls/hr IV .Q1H1M [facility] Stop: 10/02/20 16:01 Last Infusion: 10/02/20 16:42 Dose: 999 mls/hr Documented by: [id number] Admin: 10/02/20 15:23 Dose: 999 mls/hr Documented by: [id number] Sodium Chloride (Nss 1000ml) 500 mls @ 999 mls/hr IV .Q31M СВЕТЛАНА Stop: 10/02/20 16:31 Last Infusion: 10/02/20 16:42 Dose: 999 mls/hr Documented by: [id number] Admin: 10/02/20 15:23 Dose: 999 mls/hr Documented by: [id number] Piperacillin Sod/Tazobactam Sod (Zosyn) 4.5 gm in 120 mls @ 240 mls/hr IV NOW ONE Stop: 10/02/20 15:29 Last Infusion: 10/02/20 16:42 Dose: 240 mls/hr Documented by: [id number] Admin: 10/02/20 15:42 Dose: 240 mls/hr Documented by: [id number] ECG Additional Comments: Vent. Rate : 111 BPM Atrial Rate : 111 BPM P-R Int : 096 ms QRS Dur : 064 ms QT Int : 324 ms P-R-T Axes : 037 039 039 degrees QTc Int : 440 ms Sinus tachycardia with short CA Low voltage QRS Borderline ECG No previous ECGs available Confirmed by Kobe Miller ([id number]) on 10/02/2020 2:31:06 PM Code Status & VTE Plan Code Status CODE: FULL VTE: Not at any increased risk than normal when she is at home. VTE Prophylaxis Plan Reason for no VTE drug order: Treatment not indicated Supervising Physician Co-Signing Physician Notes HOT [employer]GER Supervision note: I have personally seen and examined the patient and discussed and verified the jasso points of the history and physical along with the plan with YANELIS Daugherty with the following exceptions and/or additions: This patient is a very pleasant 35-year-old female with a history of spina bifida, PART MAKER shunt, neurogenic bladder and neurogenic: With chronic constipation, who presents to the ER with persistent cough that is productive but she swallows the sputum, along with 1 or 2 days of fever in the last week. She denies any chest pain or pleuritic pain. Denies headaches or sore throat, no diarrhea. Her grandmother that she lives with also had a similar cough but is now improved. Chest x-ray shows left-sided pneumonia, and she is tachycardic, tachypneic, and has a mild leukocytosis. She did not take any antibiotics at home prior to admission. History and ROS reviewed as above Vitals reviewed-noted to be tachycardic and significantly hypertensive at times as well as tachypneic, but afebrile here, pulse ox within normal range on room air Gen: AAOx3, NAD HEENT: Anicteric sclerae, with right-sided esotropia, oropharynx clear CV: Tachycardic, regular rhythm no mgr nl S1S2 Pulm: Positive rhonchi in left lower and middle lung iglesias, no wheezes or rales, respiratory effort is normal and unlabored Abd: +BS soft NT ND no masses or hernias, surgical scar near umbilicus Ext: Atrophic lower extremities Skin: No rashes, warm/dry Laboratory values and chest x-ray reviewed ECG reviewed and shows sinus tachycardia with short CA 35-year-old female with history noted as above, here with community-acquired pneumonia, and sepsis. -Continue IV fluids, follow blood cultures Continue Rocephin and azithromycin MRSA swab pending and would add vancomycin if is positive Viral panel and Covid are negative -Supportive care, supplemental O2 as needed Tachycardia likely secondary to sepsis-should improve with IV fluids and treatment of infection For elevated blood pressure, likely related to anxiety, would treat if remains persistently greater than 180/110 PG Care Time/CCT Total # of Minutes Spent Total Time Spent with Patient: Total time spent is greater than 50% in coordination of care (as documented) at patient's floor/unit and/or counseling patient: Coding Level of Care Code 64971 Initial Inpt Care Lvl 3 Diagnoses Pneumonia J18.9 Laterality: left Lung location: lower lobe of lung Pneumonia type: due to unspecified organism SIRS (systemic inflammatory response syndrome) R65.10 Cough R05 Paraplegia G82.20 Asthma J45.909 Asthma complication type: uncomplicated Asthma persistence: unspecified Asthma severity: mild Chronic constipation K59.09 Elevated blood-pressure reading without diagnosis of hypertension R03.0 DVT prophylaxis Z29.9 (1) Pneumonia Laterality: left Lung location: lower lobe of lung Pneumonia type: due to unspecified organism Qualified Code(s): J18.9 - Pneumonia, unspecified organism (2) Asthma Asthma complication type: uncomplicated Asthma persistence: unspecified Asthma severity: mild Qualified Code(s): J45.909 - Unspecified asthma, uncomplicated
[2020-10-02 20:00] LABS: Appearance Urine Clear (Clear); Bilirubin Urine Negative (Negative); Blood Urine Negative (Negative); Color Urine Yellow; Glucose Urine UA Negative (Negative); Ketones Urine Negative (Negative); Leukocyte Esterase Urine Negative (Negative); Nitrite Urine Negative (Negative); Protein Urine Negative (Negative); Specific Gravity Urine 1.008 (1.000-1.030); Urobilinogen Urine Negative (Negative); pH Urine 7.5 (4.5-7.5)
[2020-10-02] MEDS ORDERED: guaiFENesin/DEXTROM SYRUP 200MG/20MG 10ML UDC PO PRN (20:48)
[2020-10-02] MEDS ORDERED: ALBUTEROL HFA 8 GM INHALER INH PRN (20:48)
[2020-10-02] MEDS ORDERED: ALBUTEROL 0.083% NEBU SOLN 3 ML VIAL INH PRN (20:48)
[2020-10-02] MEDS: cefTRIAXone SODIUM 1,000 MG in DEXTROSE 5% 50 ML IV SCH (21:59)
[2020-10-02] MEDS: MENTHOL-ZINC OXIDE 360 APPLN/120 GM TUBE EXT SCH (22:01)
[2020-10-02] MEDS: POLYETHYLENE (MIRALAX) 17 GM PACK PO SCH (22:02)
[2020-10-02] MEDS: LACTATED RINGER'S 1,000 ML IV SCH (22:25)
[2020-10-03] MEDS: BIRTH CONTROL - ORDER AWAITING ACTION SCH ×3 (00:06→15:38)
[2020-10-03 06:23] LABS: Basophils # (auto) 0.03 K/uL (0-0.2); Basophils % (auto) 0.2 %; Eosinophils # (auto) 0.31 K/uL (0-0.5); Eosinophils % (auto) 2.6 %; Hematocrit (blood only) 43.7 % (37-47); Hemoglobin 14.4 g/dL (12.0-16.0); Immature Granulocytes # (auto) 0.06 K/uL (0.00-0.02); Immature Granulocytes % (auto) 0.5 %; Lymphocytes # (auto) 2.94 K/uL (1.2-3.4); Lymphocytes % (auto) 24.2 %; Mean Corpuscular Hemoglobin 29.8 pg (25-34); Mean Corpuscular Volume 90.3 fL (80-100); Mean Platelet Volume 10.5 fL (7.4-10.4); Monocytes # (auto) 0.81 K/uL (0.11-0.59); Monocytes % (auto) 6.7 %; Neutrophils % (auto) 65.8 %; Platelet Count 341 K/uL (130-400); RDW Coefficient of Variation 13.8 % (11.5-14.5); RDW Standard Deviation 45.2 fL (36.4-46.3); Red Blood Count 4.84 M/uL (4.2-5.4); White Blood Count 12.15 K/uL (4.8-10.8)
[2020-10-03 07:01] LABS: BUN Creatinine Ratio 16.7 (10-20); Blood Urea Nitrogen 3 mg/dl (7-18); Calcium 8.3 mg/dl (8.5-10.1); Carbon Dioxide 26 mmol/L (21-32); Chloride 112 mmol/L (98-107); Creatinine Clr Calc Pharmacy 294.7 ml/min; Est GFR (African American) > 150.0; Est GFR (Non-African American) > 150.0; Glucose 75 mg/dl (70-99); Magnesium 2.2 mg/dl (1.8-2.4); Potassium 3.6 mmol/L (3.5-5.1); Sodium 142 mmol/L (136-145)
[2020-10-03 07:02] LABS: C Reactive Protein 0.84 mg/dl (0-0.29)
[2020-10-03] MEDS: FLUTICASONE PROPIONATE NA SPR 16 GM BTL SCH (08:28)
[2020-10-03] MEDS: AZITHROMYCIN 250 MG TAB PO SCH (08:28)
[2020-10-03] MEDS: nitrofurantoin macrocrystaL 50 MG CAP PO SCH (08:28)
[2020-10-03] MEDS: CEROVITE ADV FORMULA TAB PO SCH (08:28)
[2020-10-03] MEDS: MENTHOL-ZINC OXIDE 360 APPLN/120 GM TUBE EXT SCH ×2 (10:10→20:23)
[2020-10-03] MEDS: POLYETHYLENE (MIRALAX) 17 GM PACK PO SCH ×2 (10:10→20:23)
[2020-10-03] MEDS: LACTATED RINGER'S 1,000 ML IV SCH (13:42)
[2020-10-03] MEDS: guaiFENesin 600 MG TABCR PO SCH ×2 (17:12→20:22)
[2020-10-03] MEDS: cefTRIAXone SODIUM 1,000 MG in DEXTROSE 5% 50 ML IV SCH (20:22)
--- NOTE | 2020-10-03 21:06 | Hospitalist Progress Note ---
Date of Service October 03, 2020 Assessment & Plan (1) Pneumonia: b/l basilar. community-acquired. no gram negative pathogen risk factors (no recent hospital stay, etc). MRSA negative on [facility] swab. patient reports no swallowing difficulty, and her grandmother confirms no dysphagia signs/symptoms either. cont rocephin, day #2. cont zithromax, day #2. cont pulmonary toilet, vibration vest, etc. (2) SIRS (systemic inflammatory response syndrome): SIRS - 2nd pneumonia -- IMPROVED/resolving. finish current liter of IV fluids then saline lock. (3) Cough: add mucinex 600mg BID. schedule her albuterol qid. cont vibration vest BID. cont other pulm toilet (incentive/flutter/etc). (4) Paraplegia: ACQUIRED, 2nd spina bifida. Has wheelchair here at hospital - allow to get OOB to wheelchair. (5) Asthma: Continue usual inhalers. Schedule her albuterol qid during the day. (6) Chronic constipation: Has MACE device for chronic Rx of constipation. Daily gets 1200 ml of water with miralax qam. Grand-mother performed the procedure today. By report uses 12 Gabonese catheter and gravity tube feeding bag through the MACE device. (7) Elevated blood-pressure reading without diagnosis of hypertension: BPs improved today. Trend. (8) Spina bifida: with resulting paraplegia. h/o [employer]ER[employer]ENDANT shunt. MACE procedure/device for neurogenic bowel. Neurogenic bladder. (9) Neurogenic bladder: [place]. (10) DVT prophylaxis: would start chemical means in am if patient stays through grandmother was updated by phone this evening Admission and Anticipated Discharge Date Admission Date: October 02, 2020 Subjective patient stable overnight tele stable overnight (sinus tach only) she feels better today still coughing - and still having hard time getting sputum up - but not in distress denies swallowing difficulties tolerating the vibration vest drinking better has MACE device to empty her colon and her grandmother performed the procedure per usual today Review of Systems Constitutional: + fatigue and + anorexia; no fever and no chills Respiratory: + cough; no sputum production Cardiovascular: no chest pain Gastrointestinal: no abdominal pain Physical Exam Constitutional: no acute distress and no altered mental status mild dysmorphic appearance ENMT: Mouth: + tongue abnormality (??thrush on center of tongue??) and + dry oral mucous membranes Respiratory: no respiratory distress Auscultation: + crackles (minimal - bases) and + wheezes (occasional - end-exp) Cardiovascular: Rate/Rhythm: regular rhythm and + tachycardic Heart Sounds: normal S1 and normal S2 Vessels: posterior tibial pulses present and dorsalis pedis pulses present; no JVD Extremities: + edema (trace b/l ) Gastrointestinal (Abdomen): normal bowel sounds, soft, nontender, no hepatosplenomegaly Inspection/Auscultation: + abdomen distended (mild ) Musculoskeletal: large scar over midline of back; scoliosis present with warren el chest appearance; severe atrophy of both legs Skin: no rashes, warm and dry Psychiatric: Orientation: alert, oriented to person and oriented to place Results & Data Results & Data ([facility]) Vital Signs (Past 12 Hours) Vital Signs Temp Pulse Pulse Resp BP Pulse Ox 10/03/20 20:11 37.2 C 103 H 20 132/94 96 10/03/20 16:00 111 H 10/03/20 15:11 37.1 C 78 16 130/89 96 10/03/20 11:39 36.7 C 107 H 18 140/89 99 Laboratory Results Laboratory Results - last 24 hr 10/03/20 10/03/20 10/03/20 00:50 05:46 05:46 WBC 12.15 H RBC 4.84 Hgb 14.4 Hct 43.7 MCV 90.3 MCH 29.8 MCHC 33.0 RDW Std Deviation 45.2 RDW Coeff of Michelle 13.8 Plt Count 341 MPV 10.5 H Immature Gran % (Auto) 0.5 Neut % (Auto) 65.8 Lymph % (Auto) 24.2 [place] % (Auto) 6.7 Eos % (Auto) 2.6 Baso % (Auto) 0.2 Neut # (Auto) 8.00 H Lymph # (Auto) 2.94 [place] # (Auto) 0.81 H Eos # (Auto) 0.31 Baso # (Auto) 0.03 Immature Gran # (Auto) 0.06 H Sodium 142 Potassium 3.6 Chloride 112 H Carbon Dioxide 26 Anion Gap 4.0 BUN 3 L Creatinine 0.18 L Est Cr Clr Drug Dosing 294.7 Est GFR ( Amer) > 150.0 Est GFR (Non-Af Amer) > 150.0 BUN/Creatinine Ratio 16.7 Glucose 75 Calcium 8.3 L Magnesium 2.2 C-Reactive Protein 0.84 H Nasal Screen MRSA (PCR) Negative PG Care Time/CCT Total # of Minutes Spent Total Time Spent with Patient: Total time spent is greater than 50% in coordination of care (as documented) at patient's floor/unit and/or counseling patient: Coding Level of Care Code 49146 Subseq Hosp Care Lvl 2 Diagnoses Pneumonia J18.9 Laterality: left Lung location: lower lobe of lung Pneumonia type: due to unspecified organism SIRS (systemic inflammatory response syndrome) R65.10 Cough R05 Paraplegia G82.20 Asthma J45.909 Asthma complication type: uncomplicated Asthma persistence: unspecified Asthma severity: mild Chronic constipation K59.09 Elevated blood-pressure reading without diagnosis of hypertension R03.0 Spina bifida Q05.4 Spinal region: unspecified Presence of hydrocephalus: with hydrocephalus Neurogenic bladder N31.9 DVT prophylaxis Z29.9 (1) Pneumonia Laterality: left Lung location: lower lobe of lung Pneumonia type: due to unspecified organism Qualified Code(s): J18.9 - Pneumonia, unspecified organism (2) Asthma Asthma complication type: uncomplicated Asthma persistence: unspecified Asthma severity: mild Qualified Code(s): J45.909 - Unspecified asthma, uncomplicated (3) Spina bifida Spinal region: unspecified Presence of hydrocephalus: with hydrocephalus Qualified Code(s): Q05.4 - Unspecified spina bifida with hydrocephalus
[2020-10-04] MEDS: BIRTH CONTROL - ORDER AWAITING ACTION SCH ×3 (03:59→15:08)
[2020-10-04 06:45] LABS: Hematocrit (blood only) 41.6 % (37-47); Hemoglobin 14.4 g/dL (12.0-16.0); Mean Corpuscular Hemoglobin 30.9 pg (25-34); Mean Corpuscular Hgb Conc 34.6 g/dL (32-36); Mean Corpuscular Volume 89.3 fL (80-100); Mean Platelet Volume 10.5 fL (7.4-10.4); Platelet Count 345 K/uL (130-400); RDW Coefficient of Variation 13.7 % (11.5-14.5); RDW Standard Deviation 44.9 fL (36.4-46.3); Red Blood Count 4.66 M/uL (4.2-5.4); White Blood Count 15.49 K/uL (4.8-10.8)
[2020-10-04] MEDS: ALBUTEROL HFA 8 GM INHALER INH SCH ×4 (07:09→19:40)
[2020-10-04 07:26] LABS: Blood Urea Nitrogen 6 mg/dl (7-18); Calcium 8.6 mg/dl (8.5-10.1); Carbon Dioxide 26 mmol/L (21-32); Chloride 109 mmol/L (98-107); Creatinine Clr Calc Pharmacy 371.9 ml/min; Est GFR (African American) > 150.0; Est GFR (Non-African American) > 150.0; Glucose 92 mg/dl (70-99); Potassium 3.5 mmol/L (3.5-5.1); Sodium 140 mmol/L (136-145)
[2020-10-04] MEDS: nitrofurantoin macrocrystaL 50 MG CAP PO SCH (07:59)
[2020-10-04] MEDS: POLYETHYLENE (MIRALAX) 17 GM PACK PO SCH ×2 (07:59→20:47)
[2020-10-04] MEDS: AZITHROMYCIN 250 MG TAB PO SCH (07:59)
[2020-10-04] MEDS: CEROVITE ADV FORMULA TAB PO SCH (07:59)
[2020-10-04] MEDS: guaiFENesin 600 MG TABCR PO SCH ×2 (08:00→20:48)
[2020-10-04] MEDS: FLUTICASONE PROPIONATE NA SPR 16 GM BTL SCH (08:00)
[2020-10-04] MEDS: NYSTATIN SUSP 500,000 U/5 ML UDC PO SCH ×4 (08:01→20:47)
[2020-10-04] MEDS: MENTHOL-ZINC OXIDE 360 APPLN/120 GM TUBE EXT SCH ×2 (08:01→20:49)
[2020-10-04] MEDS: SODIUM CHLOR 7% 4 ML NEB NEB SCH ×2 (11:05→19:40)
[2020-10-04] MEDS ORDERED: predniSONE 20 MG TAB PO STA (14:42)
--- NOTE | 2020-10-04 15:12 | XRay Report ---
XR chest 1V portable HISTORY: 35 years-old Female bilateral basilar pneumonia, interval change follow-up study in a patie nt with bibasilar opacities COMPARISON: Chest radiograph 10/02/2020 TECHNIQUE: Portable AP view of the chest FINDINGS: Limited exam secondary to positioning. Cardiomediastinal and hilar silhouettes are unchanged. Ventric ular peritoneal shunt catheter is redemonstrated coiled over the abdominal left upper quadrant. No pn eumothorax or definite large pleural effusion. Unchanged left midlung and left lung base opacities wi th new/progressed right lung base airspace densities. Unchanged blunting of the left costophrenic ang le. Surgical clips project over the upper abdomen. Bones appear grossly intact. IMPRESSION: Persistent left lung opacities with new right lung base consolidation suspicious for prog ressive pneumonia. ACT 112: Negative or not required by law. The above report was generated using voice recognition software. It may contain grammatical, syntax o r spelling errors. Electronically signed by: Toño Lara M.D. 10/04/2020 3:11 PM
[2020-10-04] MEDS: cefTRIAXone SODIUM 1,000 MG in DEXTROSE 5% 50 ML IV SCH (20:47)
[2020-10-04 21:01] LABS: Influenza A virus by PCR Negative (Neg); Influenza B virus by PCR Negative (Neg); RSV by PCR Negative (Neg); SARS CoV2 RNA(COVID-19) InHosp NEGATIVE (Negative)
[2020-10-05] MEDS: BIRTH CONTROL - ORDER AWAITING ACTION SCH ×2 (01:01→09:07)
--- NOTE | 2020-10-05 04:37 | Hospitalist Progress Note ---
Date of Service October 04, 2020 Assessment & Plan (1) Pneumonia: b/l basilar. community-acquired. no gram negative pathogen risk factors (no recent hospital stay, etc). MRSA negative on HEAT TREATING BLUER swab. patient reports no swallowing difficulty, and her grandmother confirms no dysphagia signs/symptoms either. repeat cxr today now with RLL infiltrate but clinically patient is improving. I found out that patient was at a large gathering of people and several days later got sick. Thus, I repeated her COVID swab today - again negative. Thus COVID neg x 2. cont rocephin, day #3. cont zithromax, day #3. convert to PO today. cont pulmonary toilet, vibration vest, etc. adding prednisone for cough/asthma. (2) Sepsis: 2nd to pneumonia - clinically improved. no fever, feeling better. still w/ leukocytosis thus recheck cbc am. blood cx's neg to date. covid neg x 2. (3) Cough: cont mucinex 600mg BID. cont scheduled albuterol qid. cont vibration vest BID. added NaCl 4ml via neb BID. cont other pulm toilet (incentive/flutter/etc). (4) Paraplegia: ACQUIRED, 2nd spina bifida. Has wheelchair here at hospital - allow to get OOB to wheelchair. (5) Asthma: Continue usual inhalers. Albuterol qid. Add prednisone 60mg daily first dose today (about 1.5mg/kg daily). (6) Chronic constipation: Has MACE device for chronic Rx of constipation. Daily gets 1200 ml of water with miralax qam. Grand-mother performed the procedure today. By report uses 12 Beninese catheter and gravity tube feeding bag through the MACE device. (7) Elevated blood-pressure reading without diagnosis of hypertension: BPs acceptable. (8) Spina bifida: with resulting paraplegia. h/o ICER MACHINE shunt. MACE procedure/device for neurogenic bowel. Neurogenic bladder. (9) Neurogenic bladder: Lindquist. (10) DVT prophylaxis: start heparin 5000 BID grandmother was updated by phone yesterday mother updated at bedside today Admission and Anticipated Discharge Date Admission Date: October 02, 2020 Subjective tele - sinus tach overall feeling better more energy, less tired, better appetite still w/ cough and congestion still w/ difficulty expectorating sputum tolerating vibration vest mother who lives in [place] was at bedside today numerous questions answered mother asks about pulmonary referral at d/c Review of Systems Constitutional: no fever, no chills, no body aches and no fatigue Ear, Nose, Mouth, Throat: no nasal congestion and no sore throat no loss of taste or smell Respiratory: no dyspnea Cardiovascular: no chest pain Gastrointestinal: no abdominal pain Physical Exam Constitutional: no acute distress and no altered mental status ENMT: Mouth: + tongue abnormality (??thrush on center of tongue?? - slightly better today ); oral mucous membranes not dry Respiratory: no respiratory distress Auscultation: + crackles (minimal - bases) and + wheezes (occasional - end-exp) Cardiovascular: Rate/Rhythm: regular rhythm and + tachycardic Heart Sounds: normal S1 and normal S2 Vessels: posterior tibial pulses present and dorsalis pedis pulses present; no JVD Extremities: + edema (trace b/l ) Gastrointestinal (Abdomen): normal bowel sounds, soft, nontender, no hepatosplenomegaly hole present in umbilicus for MACE therapy Skin: no rashes, warm and dry Psychiatric: Orientation: alert, oriented to person, oriented to place and oriented to time Results & Data Results & Data ([facility]) Vital Signs (Past 12 Hours) Vital Signs Temp Pulse Pulse Resp BP BP Pulse Ox 10/05/20 00:38 106 H 10/05/20 00:05 36.8 C 99 H 18 152/91 H 97 10/04/20 20:26 37.1 C 117 H 18 133/91 96 10/04/20 19:44 106 H 20 93 Laboratory Results Laboratory Results - last 24 hr 10/04/20 10/04/20 10/04/20 06:32 06:32 Unknown WBC 15.49 H RBC 4.66 Hgb 14.4 Hct 41.6 MCV 89.3 MCH 30.9 MCHC 34.6 RDW Std Deviation 44.9 RDW Coeff of Michelle 13.7 Plt Count 345 MPV 10.5 H Sodium 140 Potassium 3.5 Chloride 109 H Carbon Dioxide 26 Anion Gap 5.0 BUN 6 L Creatinine < 0.15 L Est Cr Clr Drug Dosing 371.9 Est GFR ( Amer) > 150.0 Est GFR (Non-Af Amer) > 150.0 BUN/Creatinine Ratio TNP Glucose 92 Calcium 8.6 COVID-19 Eval Order CovFluRsv at [facility] SARS-CoV-2 (PCR) Influenza Type A (PCR) Influenza Type B (PCR) RSV (RT-PCR) 10/04/20 Unknown WBC RBC Hgb Hct MCV MCH MCHC RDW Std Deviation RDW Coeff of Michelle Plt Count MPV Sodium Potassium Chloride Carbon Dioxide Anion Gap BUN Creatinine Est Cr Clr Drug Dosing Est GFR ( Amer) Est GFR (Non-Af Amer) BUN/Creatinine Ratio Glucose Calcium COVID-19 Eval Order SARS-CoV-2 (PCR) NEGATIVE Influenza Type A (PCR) Negative Influenza Type B (PCR) Negative RSV (RT-PCR) Negative blood cx's negative PG Care Time/CCT Total # of Minutes Spent Total Time Spent with Patient: Total time spent is greater than 50% in coordination of care (as documented) at patient's floor/unit and/or counseling patient: Coding Level of Care Code 77236 Subseq Hosp Care Lvl 3 Diagnoses Pneumonia J18.9 Laterality: left Lung location: lower lobe of lung Pneumonia type: due to unspecified organism Sepsis A41.9 Sepsis acute organ dysfunction status: unspecified Sepsis type: sepsis due to unspecified organism Cough R05 Paraplegia G82.20 Asthma J45.909 Asthma complication type: uncomplicated Asthma persistence: unspecified Asthma severity: mild Chronic constipation K59.09 Elevated blood-pressure reading without diagnosis of hypertension R03.0 Spina bifida Q05.4 Presence of hydrocephalus: with hydrocephalus Spinal region: unspecified Neurogenic bladder N31.9 DVT prophylaxis Z29.9 (1) Sepsis Sepsis acute organ dysfunction status: unspecified Sepsis type: sepsis due to unspecified organism Qualified Code(s): A41.9 - Sepsis, unspecified organism (2) Pneumonia Laterality: left Lung location: lower lobe of lung Pneumonia type: due to unspecified organism Qualified Code(s): J18.9 - Pneumonia, unspecified organism (3) Asthma Asthma complication type: uncomplicated Asthma persistence: unspecified Asthma severity: mild Qualified Code(s): J45.909 - Unspecified asthma, uncomplicated (4) Spina bifida Presence of hydrocephalus: with hydrocephalus Spinal region: unspecified Qualified Code(s): Q05.4 - Unspecified spina bifida with hydrocephalus
[2020-10-05] MEDS: SODIUM CHLOR 7% 4 ML NEB NEB SCH (07:00)
[2020-10-05] MEDS: ALBUTEROL HFA 8 GM INHALER INH SCH ×3 (07:00→14:31)
[2020-10-05 07:09] LABS: Hematocrit (blood only) 43.9 % (37-47); Hemoglobin 14.6 g/dL (12.0-16.0); Mean Corpuscular Hemoglobin 29.9 pg (25-34); Mean Corpuscular Hgb Conc 33.3 g/dL (32-36); Mean Platelet Volume 10.5 fL (7.4-10.4); Platelet Count 389 K/uL (130-400); RDW Coefficient of Variation 13.7 % (11.5-14.5); RDW Standard Deviation 45.1 fL (36.4-46.3); Red Blood Count 4.88 M/uL (4.2-5.4); White Blood Count 13.97 K/uL (4.8-10.8)
[2020-10-05 07:45] LABS: Blood Urea Nitrogen 10 mg/dl (7-18); Calcium 8.4 mg/dl (8.5-10.1); Carbon Dioxide 26 mmol/L (21-32); Chloride 108 mmol/L (98-107); Creatinine Clr Calc Pharmacy 248.5 ml/min; Est GFR (African American) > 150.0; Est GFR (Non-African American) > 150.0; Glucose 117 mg/dl (70-99); Potassium 3.5 mmol/L (3.5-5.1); Sodium 139 mmol/L (136-145)
[2020-10-05] MEDS ORDERED: predniSONE 20 MG TAB PO ONE (08:45)
[2020-10-05] MEDS: guaiFENesin 600 MG TABCR PO SCH (08:55)
[2020-10-05] MEDS: CEROVITE ADV FORMULA TAB PO SCH (08:55)
[2020-10-05] MEDS: FLUTICASONE PROPIONATE NA SPR 16 GM BTL SCH (08:56)
[2020-10-05] MEDS: POLYETHYLENE (MIRALAX) 17 GM PACK PO SCH (08:56)
[2020-10-05] MEDS: AZITHROMYCIN 250 MG TAB PO SCH (08:56)
[2020-10-05] MEDS: nitrofurantoin macrocrystaL 50 MG CAP PO SCH (08:56)
[2020-10-05] MEDS: NYSTATIN SUSP 500,000 U/5 ML UDC PO SCH ×2 (08:56→12:58)
[2020-10-05] MEDS: MENTHOL-ZINC OXIDE 360 APPLN/120 GM TUBE EXT SCH (08:57)
[2020-10-05] MEDS ORDERED: HEPARIN SOD 5,000 UNIT/0.5 ML VIAL SQ SCH (09:00)
--- NOTE | 2020-10-05 15:14 | Discharge Summary ---
Date of Service date of admission - October 02, 2020 date of discharge - October 05, 2020 Admission HPI Per Admitting Provider 35 YOF with past medical history of spina bifida, lower extremity paralysis, MACE (Meza antegrade continence enema) procedure, intraventricular-peritoneal shunt, neurogenic bladder requiring self cath, asthma, multiple spinal procedures, follows with [facility] for nephrolithiasis has appointment next month. Patient comes in today for not feeling well for a week. She has had this productive frequent cough for 1 week, which her grandmother believes she gave it to her (she is her primary caregiver). Patient and grandmother can recall 1-2 nights last week where she also had a fever requiring linen and clothes changed. She reports that for the last 48 hours she has been coughing excessively with unable to bring anything up. She has tried Mucinex and Tessalon pearls at home with no relief. She has a nebulizer at home as well that she uses, but makes her cough more. Her viral panel and COVID test are negative. Patient will be admitted for support in clearing her secretions, antibiotic therapy and following her vitals. Principal Diagnosis bilateral community-acquired lower-lobe pneumonia Discharge Exam Constitutional no acute distress and no altered mental status ENMT Mouth: + tongue abnormality (??thrush on center of tongue?? - slightly better today ); oral mucous membranes not dry Respiratory + cough; no respiratory distress and no labored breathing Auscultation: + diminished lung sounds (Bases, L>R), + crackles (Bases, L>R) and + wheezes (occasional - end-expiratory) Cardiovascular Rate/Rhythm: regular rhythm and + tachycardic Heart Sounds: normal S1 and normal S2 Vessels: posterior tibial pulses present and dorsalis pedis pulses present; no JVD Extremities: + edema (trace b/l ) Gastrointestinal (Abdomen) normal bowel sounds, soft, nontender, no hepatosplenomegaly Inspection/Auscultation: + abdomen distended (mild ) Musculoskeletal Extremities: + clubbing (Mild) and + extremities dysmorphic (And atrophic b/l ) Skin no rashes, warm and dry Psychiatric Orientation: alert, oriented to person, oriented to place and oriented to time Discharge Data Allergies Allergy/AdvReac Type Severity Reaction Status Date / Time latex Allergy Unknown . Verified 10/02/20 16:22 morphine Allergy Unknown . Verified 10/02/20 16:22 vancomycin AdvReac Mild JOVAN Verified 10/02/20 16:22 SYNDROME Procedures Performed COVID testing NEGATIVE x 2 Ordered Studies Chest X-Ray 10/02/20 13:41 XR chest 1V portable CLINICAL HISTORY: cough COMPARISON STUDY: 03/12/2006 FINDINGS: There are tubular calcifications projected over the chest consistent with ventricular shunt catheters. There is a catheter coiled within the left upper quadrant. There are persistent left mid and lower lung zone airspace opacities, slightly progressive. Mildly increased markings are also present the right medial lung base.[There is blunting of the left lateral costophrenic angle. A small effusion cannot be excluded IMPRESSION: 1. Evidence of a ventriculoperitoneal shunt catheter which appears: Within the left upper quadrant 2. Slight progression in the left mid to lower lung zone opacities, possibly representing an acute inflammatory process superimposed on chronic lung disease. 3. Blunting of the left lateral costophrenic angle. Possible small effusion. ACT 112: Negative or not required by law. Electronically signed by: Mika Fisher M.D. 10/02/2020 3:16 PM Chest X-Ray 10/04/20 14:42 XR chest 1V portable HISTORY: 35 years-old Female bilateral basilar pneumonia, interval change follow-up study in a patient with bibasilar opacities COMPARISON: Chest radiograph 10/02/2020 TECHNIQUE: Portable AP view of the chest FINDINGS: Limited exam secondary to positioning. Cardiomediastinal and hilar silhouettes are unchanged. Ventricular peritoneal shunt catheter is redemonstrated coiled over the abdominal left upper quadrant. No pneumothorax or definite large pleural effusion. Unchanged left midlung and left lung base opacities with new/progressed right lung base airspace densities. Unchanged blunting of the left costophrenic angle. Surgical clips project over the upper abdomen. Bones appear grossly intact. IMPRESSION: Persistent left lung opacities with new right lung base consolidation suspicious for progressive pneumonia. ACT 112: Negative or not required by law. The above report was generated using voice recognition software. It may contain grammatical, syntax or spelling errors. Electronically signed by: Toño Lara M.D. 10/04/2020 3:11 PM Hospital Course (1) Pneumonia: b/l basilar. community-acquired. no gram negative pathogen risk factors (no recent hospital stay, etc). MRSA negative on PLATER HELPER swab. patient reports no swallowing difficulty, and her grandmother & mother confirmed no signs/symptoms of dysphagia. COVID testing negative x 2. FLU testing negative x 2. Received combination of IV rocephin and zithromax while hospitalized. She also received aggressive pulmonary toilet including vibration vest BID, saline nebs BID, bronchodilators, and steroids for her bronchitis/asthma compone nt. During the stay she was never hypoxic nor required supplementation oxygen. With the above measures she clinically improved. At discharge she will take the following - * 1 more dose of oral zithromax * 5 days of cefdinir twice daily * a prednisone course She was set up to see Dr Giselle Santo, [facility], on 10/16/20 at the [facility] clinic to establish care. (2) Sepsis: 2nd to pneumonia - clinically improved. blood cx's negative while here. covid neg x 2. flu neg x 2. (3) Cough: cont mucinex 600mg BID. cont scheduled albuterol qid. cont saline nebs -- NaCl 7%, 4ml via neb BID -- this was prescribed at discharge as patient has hard time coughing up sputum because of her body h abitus/anatomy. cont other pulm toilet (incentive/flutter/etc). prednisone course will be completed post-d/c. (4) Asthma: history of such. I don't have PFTs to confirm obstruction. suspect she has restrictive lung disease from scoliosis/body habitus and her diaphragmatic hernia. Continue usual inhalers. Albuterol qid. She will take a prednisone course at discharge. (5) Paraplegia: ACQUIRED, 2nd spina bifida. (6) Chronic constipation: Has MACE device for chronic Rx of constipation. Daily gets 1200 ml of water with miralax qam. Grand-mother performed the procedure during her stay. By report uses 12 English catheter and gravity tube feeding bag through the MACE device to complete the procedure. (7) Elevated blood-pressure reading without diagnosis of hypertension: BPs intermittently high at times, and still others were very normal. Would continue to monitor as outpatient. Highest systolic BPs were 150s/160s early in her course. Most systolics were <120 later in the stay. (8) Spina bifida: with resulting paraplegia. h/o VB NET PROGRAMMER shunt. MACE procedure/device for neurogenic bowel. Neurogenic bladder. (9) Neurogenic bladder: Lindquist. (10) Diaphragmatic hernia: CT scan in 2019 incidentally showed a left-sided diaphragmatic hernia. This most certainly plays a role in Rebecca's lung mechanics. I made Rebecca and her mother aware of this finding and asked them to follow- up with [facility] for it. Total Time Total Time Spent Total Time Spent (In Minutes): 50 Total Time Includes: Examination of the Patient, Discharge Planning, Medication Reconciliation and Communication With Other Providers Discharge Plan Discharge Items Patient Disposition: Home - Self-Care Reason For Visit: PNEUMONIA Discharge Diagnosis: B/l lower lobe pneumonia. COVID testing negative x 2. RSV testing (a type of virus) negative x 2. Influenza testing negative x 2. Blood cultures negative (no evidence of bacteria in the blood stream). Activity: Resume your previous activity Non-emergency contact: Primary Care Provider and Specialist Call non-emergency contact if: you have any medication questions, your symptoms worsen and you have a fever Follow-up/Referrals: [facility] [Provider Group] (first available - ideally 2-3 weeks; dx - h/o asthma, recent pneumonia, left-sided diaphragmatic hernia, spina bifida.) Giselle Santo MD [Physician] - 10/16/20 9:30 am Gaston Carey MD [Primary Care Provider] - 10/09/20 11:00 am (This appointment will be at [facility]) Diet: Regular Addtl Attending Provider Instructions: Dayday Fernandez were admitted to the hospital for b/l lower lobe pneumonia. It is uncertain if this was caused by a virus or bacterium. We checked you for COVID, flu, and RSV virus and these tests were negative. You did receive IV antibiotics in the event the pneumonia was due to bacteria. You improved over your stay with better appetite, energy, etc. Your asthma was active during the hospitalization. We used nebulizer treatments and steroids for the asthma. Finally, I wanted to mention that a CAT scan from 2019 showed that you have something called a "diaphragmatic hernia" on the left. This allows portions of the bowel to push up on the diaphragm (a large muscle that separates your chest from the belly) which in turn pushes on the left lung. With the hernia as well as as your spina bifida all of these things affect your breathing and lung function. When you see the lung specialist they can address this as necessary. They can also perform "pulmonary function tests" to see what the status is of your overall lung health. Recommendations - 1. antibiotics for pneumonia -- * azithromycin 250mg x 1 on 10/06/20 * cefdinir 300mg twice daily x 5 days; start this TONIGHT * you may want to eat extra yogurt and/or take a dedicated probiotic supplement over the next week to prevent diarrhea from the antibiotics 2. asthma treatments -- * prednisone taper - start 10/06/20 and take for 7 days as directed on the bottle * albuterol nebulizer treatment - use about 3 neb treatments daily for the next week or so (space them out every 6 hours), then use as needed thereafter * saline (NaCl) nebulizer treatment - use twice daily for about 6-7 days then stop (or stop sooner if it doesn't seem to be helping) 3. cough/congestion -- * [id number] mucinex 600mg twice daily as desired * tessalon pearles (your grandmother mentioned you have these at home) -- 100 or 200mg (1-2 capsules) every 8 hours as needed for cough * continue the green flutter valve as much as possible over the next week * elevate the head of your bed at night while sleeping for the next 1-2 weeks 4. possible yeast in mouth -- nystatin 5cc swish/spit four times daily for about 1 week 5. follow-up - see separate section Know that you may have the cough for another 1-2 weeks before it gets significantly better/resolves. Return to [facility] if -- * you have fever over 100.5 degrees * you have shortness of breath * you have chest pains * you develop severe diarrhea * any other concerns It was a pleasure caring for you! Feel better, -Dr Lewis Pending Studies at Discharge: No Stand-Alone Forms: My [facility], Smoking Cessation Medications and DC Order Prescriptions: New nystatin 100,000 unit/mL Suspension 5 ml PO QID 7 Days Qty: 150 RF: 0 sodium chloride 7 % Solution For Nebulization 4 ml NEB BID PRN (Reason: help break up/bring up secretions) Qty: 30 RF: 0 prednisone 10 mg tablet 10 mg PO DIRECTED Qty: 22 RF: 0 Continued nitrofurantoin macrocrystal 50 mg capsule 50 mg PO DAILY RF: 0 norethindrone ac-eth estradiol [June ()] 1.5-30 mg-mcg tablet 1 tab PO DAILY RF: 0 polyethylene glycol 3350 17 gram/dose powder 17 g PO BID RF: 0 albuterol sulfate [Ventolin HFA] 90 mcg/actuation Hfa Aerosol Inhaler 2 puff INHALATION QID PRN (Reason: Shortness Of Breath) RF: 0 fluticasone propionate 50 mcg/actuation spray,suspension 1 spray INTRANASAL DAILY RF: 0 cranberry 500 mg Capsule 500 mg PO DAILY RF: 0 Flovent HFA 110 mcg/actuation HFA aerosol inhaler 1 inh INHALATION BID RF: 0 Centrum 18-400 mg-mcg Tablet 1 tab PO DAILY RF: 0 Calmoseptine 0.44-20.6 % Ointment 1 applic TOPICAL BID RF: 0 albuterol sulfate 2.5 mg /3 mL (0.083 %) Solution For Nebulization 2.5 mg INHALATION Q4H PRN (Reason: Shortness Of Breath/cough/wheezing) Qty: 180 RF: 0 Changed ascorbic acid (vitamin C) 500 mg Tablet 500 mg PO DAILY Qty: 0 RF: 0 Discharge Orders: Discharge Order (Routine); Ordered 10/05/20 Ordered By: Milad Lewis Admission Data Admit Date/Time: 10/02/20 17:47 Attending Provider: Milad Lewis Admit Provider: Breanna Bolanos Primary Care Provider: Gaston Carey Other Providers: Breanna Bolanos Other Interventions: Discharge Summary Assessment (RN) Last Done: 10/05/20 15:08 Coding Level of Care Code D/C Day Management >30 mins Diagnoses Pneumonia J18.9 Laterality: left Lung location: lower lobe of lung Pneumonia type: due to unspecified organism Sepsis A41.9 Sepsis acute organ dysfunction status: unspecified Sepsis type: sepsis due to unspecified organism Cough R05 Asthma J45.909 Asthma complication type: uncomplicated Asthma persistence: unspecified Asthma severity: mild Paraplegia G82.20 Chronic constipation K59.09 Elevated blood-pressure reading without diagnosis of hypertension R03.0 Spina bifida Q05.4 Presence of hydrocephalus: with hydrocephalus Spinal region: unspecified Neurogenic bladder N31.9 Diaphragmatic hernia K44.9
== END 2020-10-05 16:00 | disposition home or self-care (01) | DRG 871 ==
LOC: ED 13:20 → SUATTDRO 17:47 → 2W 17:47
DX: J18.9 Pneumonia, unspecified organism; K59.09 Other constipation; G82.20 Paraplegia, unspecified; A41.9 Sepsis, unspecified organism; J45.909 Unspecified asthma, uncomplicated; K59.2 Neurogenic bowel, not elsewhere classified; R03.0 Elevated blood-pressure reading, without diagnosis of hypertension; Q05.9 Spina bifida, unspecified; K44.9 Diaphragmatic hernia without obstruction or gangrene